=== PATIENT | female | born 1975 | race Caucasian/White ===

== ENCOUNTER → 2016-09-14 | Outpatient (CLI) | payer MEDICAID ==
--- OUTSIDE RECORDS SUMMARY | 2016-09-14 14:19 | XMS REPORT | Continuity of Care Document ---
Demographics Preferred Language Unknown Marital Status Unknown Scientologist Affiliation Unknown Race Unknown Ethnic Group Unknown Author Author [facility] Address Unknown Phone Unavailable Allergies Medications Problems Date Dx Coded Attending Type Code Diagnosis Diagnosed By 03/07/2009 386.30 LABYRINTHITIS UNSPECIFIED 03/07/2009 789.00 ABDOMINAL PAIN UNSPECIFIED SITE 10/04/2009 079.99 UNSPECIFIED VIRAL INFECTION IN CONDITIONS CLASSIFIED ELSEWHERE AND OF UNSPECIFIED SITE 10/17/2012 462 PHARYNGITIS ACUTE 10/17/2012 465.9 UPPER RESPIRATORY INFECTION Procedures Code [place] [id number] STREP A (IN-HOUSE) 10/17/2012 Results Encounters ACCT No. Visit Date/Time Discharge Status Pt. Type Provider Facility Loc./Unit Complaint [id number] 10/17/2012 11:02:00 10/17/2012 23: 59:59 CLS Outpatient
--- NOTE | 2016-09-14 16:30 | Diagnostic Imaging Report ---
PROCEDURE: US Thyroid. TECHNIQUE: Multiple real-time grayscale images were obtained of the thyroid in various projections. INDICATION: Thyroiditis. FINDINGS: The right lobe of the thyroid measures 7.5 x 4.0 x 3.6 cm. The left lobe measures 5.9 x 2.3 x 1.8 cm. There are several nodules in both lobes of the thyroid. The largest is in the lower pole of the right lobe of the thyroid and measures 43 x 33 x 29 mm. It is homogeneous. It has a hypoechoic capsule. There is no internal microcalcification. There is some vascularity in the anterior aspect of the lesion. This area has been previously biopsied. There are other nodules in both lobes of the thyroid. Two in the upper pole of the right lobe measure 11 and 13 mm in diameter and another in the inferior pole of the right lobe measures 9 mm in diameter. Two in the left lobe of the thyroid measure 9 mm in diameter in the superior aspect and 6 mm in diameter in the inferior aspect. IMPRESSION: Multinodular goiter. No significant interval change compared to the exam dated 04/09/2016. Dictated by: Dictated on workstation # [id number]
== END ==
LOC: RAD 14:17
PROVIDERS: ATTEND Nurse Practitioner Family
DX: E06.3 Autoimmune thyroiditis (principal)
CPT/HCPCS: 76536

== ENCOUNTER → 2022-02-11 | Outpatient (CLI) | payer OTHER ==
[~2022-02-11] VITALS: Ht 165.1 cm; Wt 102.3 kg
[~2022-02-11] MED LIST: LIDOCAINE 1% INJ 20 ML VIAL INJ ONE
--- NOTE | 2022-02-11 16:29 | Diagnostic Imaging Report ---
INDICATION: Right lobe thyroid mass. Patient presents for ultrasound-guided fine-needle aspiration and Rotex biopsy. Patient brought to the procedure room and placed on table in the supine position. Ultrasound imaging of the neck was performed to evaluate appropriate entry site. The right neck was then prepped and draped in usual sterile fashion. Small amount of 1% lidocaine was utilized for local anesthesia. A total of 4 passes were made into the dominant large solid mass right lobe of thyroid utilizing 25-gauge needles and fine-needle aspiration technique. A single pass was made with a Rotex needle and Rotex biopsy was performed. Hemostasis was obtained. Patient tolerated the procedure well and left the department in stable condition. IMPRESSION: Successful ultrasound-guided fine-needle aspiration and Rotex biopsy of the dominant right lobe thyroid mass. Pathology results are currently pending. Dictated by: Dictated on workstation # [id number]
== END ==
LOC: RAD 14:00
PROVIDERS: ATTEND Nurse Practitioner Family
DX: E04.1 Nontoxic single thyroid nodule (principal)
CPT/HCPCS: 10005

== ENCOUNTER → 2022-09-17 | Outpatient (CLI) | payer OTHER ==
[~2022-09-17] VITALS: Ht 165.1 cm; Wt 100.0 kg
[~2022-09-17] MED LIST changes: -LIDOCAINE 1% INJ 20 ML VIAL INJ ONE; +LIDOCAINE 1% INJ 30 ML (XYLOCAINE) VIAL INJ ONE
--- NOTE | 2022-09-17 16:09 | Diagnostic Imaging Report ---
INDICATION: Right breast mass. EXAMINATION: Patient presents for ultrasound-guided core biopsy. PROCEDURE: Patient was brought to the sonography suite and placed on table in the supine position. Ultrasound imaging of the right breast was performed to evaluate appropriate entry site. The right breast was then prepped and draped in the usual sterile fashion. A small amount of 1% lidocaine was utilized for local anesthesia. Multiple core biopsies of the lobulated mass at the 10:00 location of the right breast was performed utilizing the 14-gauge Achieve needle. A marker clip was deployed. Hemostasis was obtained using manual compression. Patient tolerated the procedure well and was sent for post procedure mammogram in satisfactory condition. IMPRESSION: Successful ultrasound-guided core biopsy of the lobulated solid mass in the 10:00 location of right breast, 5 cm from the nipple. Pathology results are currently pending. Dictated by: Dictated on workstation # [id number]
--- NOTE | 2022-09-18 10:53 | Diagnostic Imaging Report ---
INDICATION: Right breast mass, status post biopsy using ultrasound guidance. Unilateral right 2-D CC and ML mammography was performed after patient underwent ultrasound-guided biopsy. A marker clip is identified in the upper and outer aspect of the right breast posterior depth. IMPRESSION: Clip placement, status post ultrasound-guided biopsy. Dictated by: Dictated on workstation # [id number]
== END ==
LOC: RAD 13:55
PROVIDERS: ATTEND Nurse Practitioner Family
DX: N63.11 Unspecified lump in the right breast, upper outer quadrant (principal); Z98.890 Other specified postprocedural states
CPT/HCPCS: 19083; 77065; G0279